=== PATIENT | female | born 1960 ===

== ENCOUNTER 2017-04-24 10:17 | Emergency (ER) | payer BC, OTHER ==
[2017-04-24 10:23] VITALS: BP 156/76; PULSE 60; RESP 18; TEMP 97.8; O2SAT 98; BMI 32.6
--- NOTE | 2017-04-24 10:47 | ED PDOC ---
HPI: General Adult Time Seen by Provider: 04/24/17 10:29 Chief Complaint (Nursing): Trauma Chief Complaint (Provider): fall History Per: Patient Additional Complaint(s): 56-year-old female presents to emergency department for evaluation of right rib pain and right leg pain status post fall last week at work. Patient tripped and fell at work and was seen by employee health and was given prescription for Naprosyn. She has been taking Naprosyn for the past week and still has persistent pain to the right ribs and right lower extremity. Patient has also noticed bruising to right arm and right leg. She has mild pain to right calf as well. Patient states Naprosyn has provided only minimal relief of her pain. Patient did not sustain head injury or loss of consciousness at time of injury and has not had any headache since time of fall. Past Medical History Reviewed: Historical Data, Nursing Documentation, Vital Signs Vital Signs: Last Vital Signs Temp 97.8 F 04/24/17 10:22 Pulse 60 04/24/17 10:22 Resp 18 04/24/17 10:22 BP 156/76 H 04/24/17 10:22 Pulse Ox 98 04/24/17 11:41 - Medical History PMH: No Chronic Diseases - Surgical History Surgical History: Appendectomy Other surgeries: L shoulder surgery - Family History Family History: States: No Known Family Hx - Living Arrangements Living Arrangements: With Family - Social History Current smoker - smoking cessation education provided: No Alcohol: None Drugs: Denies - Home Medications Home Medications: Ambulatory Orders Medication Instructions Recorded Cyclobenzaprine [Cyclobenzaprine 10 mg PO TID PRN #15 tab 04/24/17 HCl] Ibuprofen [Motrin] 600 mg PO Q6 PRN #15 tab 04/24/17 - Allergies Allergies/Adverse Reactions: Allergies Allergy/AdvReac Type Severity Reaction Status Date / Time No Known Allergies Allergy Verified 04/24/17 10:40 Review of Systems ROS Statement: Except As Marked, All Systems Reviewed And Found Negative Cardiovascular: Negative for: Chest Pain Gastrointestinal: Negative for: Nausea, Vomiting Musculoskeletal: Positive for: Other (right leg pain, right rib pain, s/p fall last week) Neurological: Negative for: Headache, Dizziness Physical Exam - Reviewed Nursing Documentation Reviewed: Yes Vital Signs Reviewed: Yes - Physical Exam Appears: Positive for: Well, Non-toxic, No Acute Distress Skin: Negative for: Rash Eye Exam: Positive for: Normal appearance Neck: Positive for: Painless ROM Cardiovascular/Chest: Positive for: Regular Rate, Rhythm, Other (Diffuse tenderness right lateral chest wall with no palpable bony deformity or ecchymosis noted) Respiratory: Positive for: Normal Breath Sounds. Negative for: Respiratory Distress Gastrointestinal/Abdominal: Positive for: Soft. Negative for: Tenderness, Distended, Guarding, Rebound Back: Negative for: Vertebral Tenderness Extremity: Positive for: Other (Ecchymosis noted to right wrist with full range of motion, nontender right wrist, ecchymosis noted to right knee and right calf region with diffuse tenderness, full range of motion right knee with pain, normal distal sensation right lower extremity, moderate tenderness upon palpation of right calf) Neurologic/Psych: Positive for: Alert, Oriented - ECG O2 Sat by Pulse Oximetry: 98 Pulse Ox Interpretation: Normal - Other Rad CXR with right rib series X-Ray: Interpreted by Me, Viewed By Me X-Ray Interpretation: no rib fracture, no acute finding Right knee x-ray X-Ray: Interpreted by Me, Viewed By Me X-Ray Interpretation: no fx, no dis Doppler right leg X-Ray: Read By Radiologist X-Ray Interpretation: no DVT Medical Decision Making Medical Decision Makin56 year old with right leg pain and right rib pain s/p fall 1 week ago Plan: CXR with right rib series Doppler right leg X-ray right knee PO tramadol and IM toradol for pain Patient feels better after medications were given, she is aware of all diagnostic testing results. Patient given prescription for motrin and flexeril. Patient referred to orthopedist on-call for follow-up. Disposition - Clinical Impression Clinical Impression: Rib contusion, Contusion of leg - Patient ED Disposition Is Patient to be Admitted: No Counseled Patient/Family Regarding: Studies Performed, Diagnosis, Need For Followup, Rx Given - Disposition Referrals: Melissa Galvan MD [Staff Provider] - Disposition: Routine/Home Disposition Time: 12:58 Condition: STABLE Additional Instructions: Ice, rest and elevate affected area. Take rx meds as directed as needed for pain. Follow up with primary care doctor or referred orthopedist for any persistent symptoms. Prescriptions: Cyclobenzaprine [Cyclobenzaprine HCl] 10 mg PO TID PRN #15 tab PRN Reason: Muscle Pain Ibuprofen [Motrin] 600 mg PO Q6 PRN #15 tab PRN Reason: Pain, Moderate (4-7) Instructions: Rib Contusion (ED), Leg Sprain (ED), Hematoma (ED) Forms: [facility] ED School/Work Excuse Print Language: CONGOLESE
--- NOTE | 2017-04-24 12:08 | US ---
PROCEDURE: Right lower extremity venous duplex Doppler. HISTORY: calf swelling and tenderness, rule out DVT COMPARISON: None available. TECHNIQUE: Common femoral, superficial femoral, popliteal and posterior tibial veins were evaluated. Flow was assessed with color Doppler, compressibility, assessment of phasic flow and augmentation response. FINDINGS: COMMON FEMORAL VEIN: Unremarkable. SUPERFICIAL FEMORAL VEIN: Unremarkable. POPLITEAL VEIN: Unremarkable. POSTERIOR TIBIAL VEIN: Unremarkable. OTHER FINDINGS: None. IMPRESSION: No evidence of deep venous thrombosis in the right lower extremity.
--- NOTE | 2017-04-24 12:37 | RAD ---
PROCEDURE: Radiographs of the Chest and Right Ribs. HISTORY: trauma COMPARISON: None available. TECHNIQUE: Frontal radiograph of the chest and multiple oblique radiographs of the right ribs were obtained. FINDINGS: RIGHT RIBS: No fracture or focal lesion visualized. LUNGS: Clear. PLEURA: No pneumothorax or pleural fluid.Biapical pleural parenchymal thickening noted. CARDIOVASCULAR: Normal sized heart. No pulmonary vascular congestion. OTHER FINDINGS: Punctate sclerotic density overlying the mid 6th posterior rib. The osseous structures demonstrate degenerative changes. Upper abdomen is suboptimally evaluated. IMPRESSION: Clear lungs. No right rib fracture.
--- NOTE | 2017-04-24 12:44 | RAD ---
PROCEDURE: Right Knee Radiographs. HISTORY: trauma COMPARISON: None. FINDINGS: BONES: Normal. No fracture. JOINTS: Normal. No osteoarthritis. JOINT EFFUSION: None. OTHER FINDINGS: None. IMPRESSION: Normal radiographs of the right knee.
--- NOTE | 2017-04-26 07:03 | CARD ---
APPROVED REPORT EKG Measurement Heart [id number] <Conclusion> Sinus bradycardia Otherwise normal ECG
== END 2017-04-24 13:18 | disposition home or self-care (01) ==
LOC: H.ER 10:17
DX: S20.219A Contusion of unspecified front wall of thorax, initial encounter (principal); S80.11XA Contusion of right lower leg, initial encounter; W01.0XXA Fall on same level from slipping, tripping and stumbling without subsequent striking against object, initial encounter; Y99.0 Civilian activity done for income or pay
CPT/HCPCS: 71101; 73562; 93971; 96372; 99283; J1885